=== PATIENT | male | born 1960 | race Caucasian/White ===

== ENCOUNTER 2022-01-17 19:48 | Emergency (ER) | payer OTHER, SELFPAY ==
[2022-01-17 19:54] VITALS: BP 172/93; PULSE 73; RESP 18; TEMP 36.7; O2SAT 92; BMI 36.1
--- NOTE | 2022-01-17 20:00 | W.ED.SOB ---
HPI - SOB/Dyspnea General: Chief Complaint: Shortness of Breath/Dyspnea Stated Complaint: SOB Time Seen by Provider: 01/17/22 20:00 History of Present Illness: HPI Narrative: Mr. Yoon is a 61-year-old gentleman with history of GREG and probable longstanding secondhand smoke exposure though nothing recent who presents emergency department due to shortness of breath. Reports a history of frequent respiratory infections that occur roughly yearly. Over the past few days he has felt well however today has had cough, shortness of breath, and generalized malaise. He denies associated fevers or chills. He endorses dyspnea on exertion and decreased exercise tolerance. He felt bad enough that he put on his CPAP machine earlier however still felt ill so he came to the emergency department. Overall the intensity symptoms is moderate to severe, course has persisted, denies sick contacts. He is not vaccinated is Covid. No other specific change in health, exacerbating, relieving factors identified. Pertinent past history: other (Reports lung scarring secondary to secondhand exposure) Onset (ago): hour(s) Timing: constant and progressively worsening Severity: moderate Exacerbating factors: exertion Associated symptoms: Reports cough Review of Systems General: Reports: 10 or more systems reviewed and unremarkable except in HPI and below PFSH ED PFSH: Medical History GREG (obstructive sleep apnea) Surgical History No significant past surgical history Social History Smoking and tobacco status: never smoked Second hand smoke exposure: Yes Physical Exam Const: COMMON NORMALS: alert GENERAL APPEARANCE: cooperative and well developed HENMT: COMMON NORMALS: normocephalic and atraumatic HEAD & SCALP: normocephalic and atraumatic THROAT: posterior oropharynx normal Eye: COMMON NORMALS: conjunctivae normal CONJUNCTIVA: Yes conjunctivae normal SCLERA: sclerae normal Neck/C-Spine: COMMON NORMALS: supple GENERAL: Yes trachea midline Resp: COMMON NORMALS: normal respiratory effort EFFORT & INSPECTION: Yes tachypneic AUSCULTATION: diminished lung sounds Cardio: COMMON NORMALS: regular rate and regular rhythm RATE: regular rate RHYTHM: regular rhythm GI: COMMON NORMALS: Soft to palpation PALPATION: Yes Soft to palpation and No Tenderness to palpation present (GI) PERCUSSION: normal to percussion Extremity: GENERAL: Yes normal exam except as noted and No edema Neuro: COMMON NORMALS: moves all extremities SENSORIUM/ORIENTATION: Yes alert and No Orientation impaired Psych: COMMON NORMALS: mental status grossly normal and Normal thought process present THOUGHT PROCESS: Normal thought process present Course ED course: - Patient was seen and evaluated by me at bedside - Patient placed on cardiac monitors, IV access obtained - Initial evaluation notable for exam as above -RT treatment ordered - Labs notable for no leukocytosis. No significant metabolic abnormality. Troponin and delta troponin negative. - Imaging notable for no lobar consolidation - Upon serial reexamination after treatment the patient was markedly improved with resumption of normal respiratory effort. - Based on patient history, evaluation, labs, and imaging as interpreted the most likely cause of the patient's condition is pneumonia/COPD exacerbation likely in the context of underlying lung disease secondary to longstanding secondhand tobacco smoke exposure - The results of ED evaluation were discussed with the patient including prescriptions and/or symptomatic cares (if applicable) including appropriate and responsible use, followup plan, and return precautions. The patient verbalized understanding and felt safe for discharge. - Patient discharged in satisfactory condition. Note: Click bubbles or prepopulated rebolledo in note writing are used for assistance with data collection and billing and are inherently more limited than narrative and other text portions of this note. Please use narrative for additional clinical history and defer to narrative/free test for any case of contradictory information. If information appears in only free text or click bubble it should be considered present or absent as reported. Please contact note script writer for clarifications of clinical information or contradictory information. MDM is a brief summary, contradictory or erroneous seeming information should be clarified and full note should be reviewed. Vital Signs: Vital signs: Vital Signs Temperature 98.1 F 01/17/22 19:54 Pulse Rate 81 01/17/22 22:12 Respiratory Rate 17 01/17/22 22:12 Blood Pressure 140/84 01/17/22 22:12 Pulse Oximetry 93 01/17/22 23:25 MDM - SOB/Dyspnea Medical Decision Making 61-year-old male with history of GREG and reported lung scarring from secondhand tobacco smoke exposure as a child presenting with 1 day history of cough and shortness of breath. Laboratory studies a chest x-ray unremarkable. Clinical history consistent with pneumonia, patient will be treated for pneumonia/COPD exacerbation Satisfactory for discharge with marked improvement with RT treatment. Medical Records I reviewed the patient's medical records. Lab Data I reviewed the patient's lab results. : 01/17/22 20:35 01/17/22 20:35 Labs/Radiology: Radiology Impressions Chest X-Ray 01/17/22:23 IMPRESSION: No acute findings. Laboratory Results WBC 9.4 10^3/uL (4.0-10.0) 01/17/22 20:35 RBC 4.94 10^6/uL (4.1-5.3) 01/17/22 20:35 Hgb 15.1 g/dL (11.7-16.6) 01/17/22 20: Hct 44.3 % (42.0-52.0) 01/17/22 20:35 MCV 89.7 fl (80-94) 01/17/22 20: MCH 30.6 pg (28.0-34.0) 01/17/22 20: MCHC 34.1 g/dL (30.0-36.0) 01/17/22 20:35 RDW 11.9 % (12.1-15.1) L 01/17/22:35 Plt Count 247 10^3/cmm (130-400) 01/17/22:35 MPV 9.9 fL (7.4-10.4) 01/17/22 20:35 Neut % (Auto) 55.7 % 01/17/22 20:35 Lymph % (Auto) 28.6 % 01/17/22 20:35 [place] % (Auto) 11.5 % 01/17/22 20:35 Eos % (Auto) 3.5 % 01/17/22:35 Baso % (Auto) 0.4 % 01/17/22:35 Neut # (Auto) 5.25 10^3/uL (1.8-7.7) 01/17/22 20:35 Lymph # (Auto) 2.7 10^3/uL (0.8-4.8) 01/17/22 20:35 [place] # (Auto) 1.1 10^3/uL (0.2-0.9) H 01/17/22 20:35 Eos # (Auto) 0.3 10^3/uL (0.0-0.8) 01/17/22 20:35 Baso # (Auto) 0.0 10^3/uL (0.0-0.1) 01/17/22 20:35 Nucleated RBC % (auto) 0 % 01/17/22 20:35 Nucleated RBCs # 0.0 /100WBC 01/17/22 20:35 Sodium 138 mmol/L (136-145) 01/17/22 20:35 Potassium 3.9 mmol/L (3.5-5.1) 01/17/22 20:35 Chloride 104 mmol/L (98-107) 01/17/22 20:35 Carbon Dioxide 23 mmol/L (22-29) 01/17/22 20:35 Anion Gap 14.9 (5-19) 01/17/22 20:35 BUN 9 mg/dL (8-23) 01/17/22 20:35 Creatinine 0.8 mg/dL (0.7-1.2) 01/17/22 20:35 GFR Calculation 98.0 mL/min (90-130) 01/17/22 20:35 Glucose 108 mg/dL (65-115) 01/17/22 20:35 Calculated Osmolality 285 mOsm/kg (285-295) 01/17/22 20:35 Calcium 9.6 mg/dL (8.5-10.5) 01/17/22 20:35 Total Bilirubin 0.6 mg/dL (0.15-1.2) 01/17/22 20:35 AST 33 U/L (0-40) 01/17/22 20:35 ALT 53 U/L (0-41) H 01/17/22 20:35 Alkaline Phosphatase 101 IU/L (40-130) 01/17/22 20:35 Troponin T Baseline 11 ng/L (0-15) 01/17/22 20:35 Troponin T 120 Minute 10.28 ng/L (0-15) 01/17/22 22:53 Delta Troponin T -0.72 ABS# (0-10) L 01/17/22 22:53 C-Reactive Protein 3.0 mg/L (0.0-4.9) 01/17/22 20:35 Total Protein 7.4 g/dL (6.6-8.7) 01/17/22 20:35 Albumin 4.5 g/dL (3.5-5.2) 01/17/22 20:35 Globulin 2.9 g/dL (1.3-4.6) 01/17/22 20:35 Procalcitonin 0.06 ng/mL (0-0.5) 01/17/22 20:35 SARS-CoV-2 Ag (Rapid) Negative (Negative) 01/17/22 21:10 EKG Data EKG 1: I personally reviewed and interpreted this EKG as follows: EKG Interpretation Date: 01/17/22 EKG interpretation time: 22:34 Interpretation: Twelve-lead EKG shows a regular rhythm at a rate of 73. CA interval 157, QRS duration 89, QTc 397. Normal axis. Interpretation: Sinus rhythm. Discharge Plan Discharge Patient Disposition: Home Clinical Impression: Community acquired pneumonia Condition: Stable Prescriptions: New prednisone 50 mg tablet 50 mg PO DAILY 5 Days Qty: 5 0RF Augmentin 875-125 mg tablet 1 tab PO BID Qty: 20 0RF Discharge Orders: Discharge ED (Routine); Ordered 01/17/22 Ordered By: Denzel Saenz Referrals: Micha Puente, [Primary Care Provider] - Patient Instructions: Community Acquired Pneumonia (ED) Activity Restrictions/Additional Instructions: Thank you for visiting the emergency department. You were seen and evaluated for cough and shortness of breath. The exact cause of these symptoms is unclear but likely related to pneumonia. You will treated with steroids and antibiotics given likely history of lung disease. Please followup with your PCP. Return to the ED for worsening symptoms, failure to improved, chest pain, or anything else that you are concerned about and feel needs emergency evaluation. Coding Level of Care Code ED General House Worker for Chg Fwd Exam Comprehensive
[2022-01-17 20:22] VITALS: BP 144/93; PULSE 83; RESP 20; O2SAT 94
--- NOTE | 2022-01-17 20:23 | XRR_ITS ---
PROCEDURE INFORMATION: Exam: XR Chest Exam date and time: 01/17/2022 8:23 PM Age: 61 years old Clinical indication: Cough and shortness of breath; Additional info: SOB TECHNIQUE: Imaging protocol: XR of the chest. Views: 1 view. COMPARISON: CT chest con [id number] 08/31/2015 12:39 PM FINDINGS: Lungs: Unremarkable. No consolidation. Pleural spaces: Unremarkable. No pleural effusion. No pneumothorax. Heart/Mediastinum: Unremarkable. No cardiomegaly. Bones/joints: Unremarkable. XR/XR chest 1V portable [id number] IMPRESSION: No acute findings.
[2022-01-17] MEDS: ipratropium-albuterol 3 mL Neb INHALATION (20:42)
[2022-01-17 20:43] VITALS: PULSE 79; RESP 18; O2SAT 95
[2022-01-17 20:45] LABS: Basophils % 0.4 %; Eosinophils # 0.3 10^3/uL (0.0-0.8); Eosinophils % 3.5 %; Hematocrit 44.3 % (42.0-52.0); Hemoglobin 15.1 g/dL (11.7-16.6); Lymphocytes # 2.7 10^3/uL (0.8-4.8); Lymphocytes % 28.6 %; Mean Corpuscular HGB Conc 34.1 g/dL (30.0-36.0); Mean Corpuscular Hemoglobin 30.6 pg (28.0-34.0); Mean Corpuscular Volume 89.7 fl (80-94); Mean Platelet Volume 9.9 fL (7.4-10.4); Monocytes # 1.1 10^3/uL (0.2-0.9); Monocytes % 11.5 %; Neutrophils # 5.25 10^3/uL (1.8-7.7); Neutrophils % 55.7 %; Nucleated Red Blood Cells % 0 %; Platelet Count 247 10^3/cmm (130-400); Red Blood Count 4.94 10^6/uL (4.1-5.3); Red Cell Distribution Width 11.9 % (12.1-15.1); White Blood Count 9.4 10^3/uL (4.0-10.0)
[2022-01-17 20:52] VITALS: PULSE 81
[2022-01-17] MEDS: dexamethasone 10 mg/mL INJ 6 MG IVP (21:06)
[2022-01-17 21:22] LABS: Troponin(5th) Baseline 11 ng/L (0-15)
[2022-01-17 21:26] LABS: Procalcitonin 0.06 ng/mL (0-0.5)
[2022-01-17 21:33] LABS: SARS Covid-2 Antigen Negative (Negative)
[2022-01-17 21:39] LABS: Alanine Aminotransferase 53 U/L (0-41); Albumin Level 4.5 g/dL (3.5-5.2); Alkaline Phosphatase 101 IU/L (40-130); Anion Gap 14.9 (5-19); Aspartate Amino Transferase 33 U/L (0-40); Blood Urea Nitrogen 9 mg/dL (8-23); Calcium 9.6 mg/dL (8.5-10.5); Carbon Dioxide 23 mmol/L (22-29); Chloride 104 mmol/L (98-107); Globulin 2.9 g/dL (1.3-4.6); Glucose 108 mg/dL (65-115); Osmolality Calculated 285 mOsm/kg (285-295); Potassium 3.9 mmol/L (3.5-5.1); Sodium 138 mmol/L (136-145); Total Bilirubin 0.6 mg/dL (0.15-1.2); Total Protein 7.4 g/dL (6.6-8.7)
[2022-01-17 22:12] VITALS: BP 140/84; PULSE 81; RESP 17; O2SAT 95
--- NOTE | 2022-01-17 22:23 | ECG_ITS ---
[facility] Test Date: 2022-01-17 Pat Name: Shiraz Yoon Department: Room: Gender: Male Building Attendant: : 1960 Requested By: Denzel Saenz Order Number: [id number] Beronica MD: Ramírez Downs M.D. Measurements Intervals [place] Rate: 73 P: 50 NV: 157 QRS: 44 QRSD: 89 T: 48 QT: 371 QTc: 410 Interpretive Statements SINUS RHYTHM No previous ECG available for comparison Electronically Signed On 01-18-2022 20:54:00 DANCE PROFESSOR by Ramírez Downs M.D. [id number]
[2022-01-17 23:25] VITALS: O2SAT 93
[2022-01-17] MEDS: amoxicillin-clav 875-125 mg Tablet 1 TAB PO (23:25)
[2022-01-17 23:31] LABS: Troponin 5 2HR 10.28 ng/L (0-15)
[2022-01-17 23:57] LABS: Troponin 5 2HR Delta -0.72 ABS# (0-10)
== END 2022-01-17 23:26 | disposition home or self-care (01) ==
PROVIDERS: Emergency Provider Emergency Medicine; PCP Family Medicine
DX: J18.9 Pneumonia, unspecified organism (principal); Z77.22 Contact with and (suspected) exposure to environmental tobacco smoke (acute) (chronic); Z20.822 Contact with and (suspected) exposure to COVID-19
CPT/HCPCS: 36415; 71045; 80053; 84145; 84484; 85025; 86140; 87426; 93005; 94640; 96374; 99284; J1100

== ENCOUNTER 2022-12-17 12:54 | Emergency (ER) | payer OTHER, SELFPAY ==
[2022-12-17 12:57] VITALS: BMI 36.1
[2022-12-17 13:08] VITALS: BP 135/95; PULSE 86; RESP 16; TEMP 36.6; O2SAT 94
--- NOTE | 2022-12-17 13:31 | XR_ITS ---
WS: [id number] Right hip, portable supine 2 views, AP supine portable pelvis, 12/17/2022 Clinical Data: Fall from height Comparison: None. Findings: There is a vertical fracture of the right ilium extending from the level of the inferior right SI stephen nt to the right superior pubic symphysis just along the acetabulum. The right hip is intact with no fracture. The right superior and inferior issue pubic rami are intact . The right SI joint is normal. The left hip is normal. The soft tissues are normal. XR/XR hip RT 2-3V wo/w pel* [id number] Impression: Vertical fracture of the inferior medial right ilium extending to the right obt urator foramen.
--- NOTE | 2022-12-17 13:31 | XR_ITS ---
WS: [id number] Right shoulder, 3 views, 12/17/2022 Clinical Data: Fall from height Comparison: None. Findings: There is a comminuted fracture of the proximal right humerus extending inferiorly for 12.5 cm from th e neck to the mid right humerus. The AC joints is intact. There is soft tissue swelling of the proximal right arm. XR/XR shoulder RT min 2V* [id number] Impression: Comminuted fracture of the right humerus involving the humeral head and extendi ng inferiorly to the mid right humerus.
--- NOTE | 2022-12-17 13:36 | W.ED.FALL ---
HPI - Fall General: Chief Complaint: Fall Stated Complaint: FALL FROM LADDER Time Seen by Provider: 12/17/22 13:09 Source: patient History of Present Illness: This is a 62-year-old male with a history of obstructive sleep apnea was brought to the ER for evaluation following a fall. 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 His right shoulder took the main brunt of the fall and he complains of right shoulder and right hip pain. He is unable to utilize the right upper extremity as a result of pain. He denies head injury or loss of consciousness. This is a Workmen's Comp. case. Currently, pain is tolerable because he received morphine. He denies any other injuries. Associated symptoms-after fall: Denies chest pain, headache(s), lightheadedness or neck pain Review of Systems Const: Denies: chills, body aches or change in appetite Eyes: Denies: change in vision or eye discharge ENMT: Denies: throat pain, dental pain or nasal discharge Card: Denies: chest pain or lightheadedness : Denies: dysuria Musc: Reports: extremity swelling (Right shoulder), joint pain (Right shoulder and right hip), limited range of motion (Right shoulder and to a lesser extent, right hip) and other; Denies: neck pain or back pain Neuro: Denies: headache(s) or weakness in extremities Psych: Denies: depression [place]/Lymph: Denies: easy bruising All/Imm: Denies: urticaria, tongue swelling or facial swelling PFSH ED PFSH: Medical History GREG (obstructive sleep apnea) Surgical History No significant past surgical history Social History Smoking and tobacco status: never smoked Second hand smoke exposure: Yes Physical Exam Const: COMMON NORMALS: patient oriented x3, no limitations and alert HENMT: COMMON NORMALS: normocephalic HEAD & SCALP: normocephalic Eye: COMMON NORMALS: EOMs intact bilaterally Neck/C-Spine: COMMON NORMALS: full ROM and supple Chest: COMMONS NORMALS: normal inspection of the chest Resp: COMMON NORMALS: normal respiratory effort, No retractions, No use of accessory muscles and clear to auscultation bilaterally AUSCULTATION: clear to auscultation bilaterally Cardio: COMMON NORMALS: regular rate, regular rhythm and No murmurs present (Cardio) RATE: regular rate RHYTHM: regular rhythm GI: COMMON NORMALS: Normal to inspection, nondistended, normoactive bowel sounds present and non-tender : COMMON NORMALS: Yes no CVA tenderness BLADDER/KIDNEY EXAM: Yes no CVA tenderness Back/Pelvis: COMMON NORMALS: no CVA tenderness and no thoracic nor lumbar tenderness Extremity: GENERAL: Yes other findings (Tenderness and marked limitation of movement right shoulder. ) OTHER: There is marked limitation of right shoulder movement. There is some swelling over the proximal arm. Patient is able to flex the right hip though with some discomfort. There is no distal neurovascular deficit. Neuro: COMMON NORMALS: patient oriented x3 and no focal motor deficits SENSORIUM/ORIENTATION: Yes alert Psych: COMMON NORMALS: mental status grossly normal and cooperative Course Consultations: Consultation #1: Case discussed with Dr. Garza, orthopedic surgeon on-call. He recommends that given the fracture of the ilium, patient should be transferred to a trauma center. Time: 15:57 Consultation #2: Coordinator informed me that Dr. Wren at [facility] ER accepted patient in transfer. Dr. andrew Jimenez report not needed. Vital Signs: Vital signs: Vital Signs Temperature 97.8 F 12/17/22 13:08 Pulse Rate 86 12/17/22 13:08 Respiratory Rate 18 12/17/22 14:29 Blood Pressure 135/95 12/17/22 13:08 Pulse Oximetry 94 12/17/22 13:08 Oxygen Delivery Me thod 12/17/22 13:08 MDM - Fall Medical Decision Making Medical decision making: Patient presents to the ER following a fall from a ladder. He landed mainly on the right side of the body. X-ray of the right humerus shows a comminuted fracture involving the humeral head and extending inferiorly to the mid right humerus. Pelvic x-ray shows a vertical fracture of the inferior medial right ilium extending to the right obturator foramen. Case discussed with Dr. Garza, orthopedic surgeon on-call. Recommends transfer to a trauma center. Patient and prefer to be transferred to [facility]. Patient accepted by Dr. Wren at [facility]. Lab Data Radiology Impressions Hip/Pelvis X-Ray 12/17/22 13:31 Impression: Vertical fracture of the inferior medial right ilium extending to the right obturator foramen. Shoulder X-Ray 12/17/22 13:31 Impression: Comminuted fracture of the right humerus involving the humeral head and extending inferiorly to the mid right humerus. Chest X-Ray 12/17/22 15:07 Impression: Atherosclerosis. Discharge Plan Discharge Patient Disposition: Transfer to ED Clinical Impression: Fracture of ilium, Fracture of right humerus Condition: Stable Prescriptions: No Action telmisartan 80 mg tablet 80 mg PO DAILY Fish Oil 1,200 (144-216) mg Capsule 1 cap PO DAILY [place] Raddish 1 tab PO BID Referrals: Micha Puente DO [Primary Care Provider] - Coding Level of Care Code ED Process Coach for Chg Fwd Exam Comprehensive
[2022-12-17 14:29] VITALS: RESP 18
[2022-12-17] MEDS: morphine 4 mg/mL SDV 1 mL IVP ×2 (14:29→17:01)
--- NOTE | 2022-12-17 15:07 | XR_ITS ---
WS: [id number] Portable AP supine chest, 12/17/2022 Clinical Data: fall Comparison: Portable chest, 01/17/2022 Findings: No nodules, masses or effusions are seen. The heart is normal. The pulmonary vascularity is not increased. No pneumonia or pneumothorax is seen. The aortic arch and descending thoracic aorta s how mild calcification and tortuosity. XR/XR chest 1V portable [id number] Impression: Atherosclerosis.
[2022-12-17 17:01] VITALS: RESP 18
[2022-12-17 17:23] VITALS: BP 120/78; PULSE 86; RESP 18; TEMP 36.6; O2SAT 94
[2022-12-17 17:42] VITALS: BP 120/78; PULSE 83; RESP 17; TEMP 36.6; O2SAT 96
== END 2022-12-17 17:43 ==
PROVIDERS: Emergency Provider Family Medicine; PCP Family Medicine
DX: S42.291A Other displaced fracture of upper end of right humerus, initial encounter for closed fracture (principal); S32.391A Other fracture of right ilium, initial encounter for closed fracture; W11.XXXA Fall on and from ladder, initial encounter
CPT/HCPCS: 71045; 73030; 73502; 96374; 96376; 99285; J2270

== ENCOUNTER 2023-01-23 06:00 | Outpatient (RCR) | payer OTHER, SELFPAY | END 2023-01-29 23:59 | disposition home or self-care (01) | LOC: SPT 06:00 | PROVIDERS: PCP Family Medicine; Visit Provider Orthopaedic Surgery Orthopaedic Trauma | DX: S42.301D Unspecified fracture of shaft of humerus, right arm, subsequent encounter for fracture with routine healing (principal); X58.XXXD Exposure to other specified factors, subsequent encounter | CPT/HCPCS: 97110; 97161 ==

== ENCOUNTER 2023-01-30 06:00 | Outpatient (RCR) | payer OTHER, SELFPAY | END 2023-03-01 23:59 | disposition home or self-care (01) | LOC: SPT 06:00 | PROVIDERS: PCP Family Medicine; Visit Provider Orthopaedic Surgery Orthopaedic Trauma | DX: S42.301D Unspecified fracture of shaft of humerus, right arm, subsequent encounter for fracture with routine healing (principal); X58.XXXD Exposure to other specified factors, subsequent encounter | CPT/HCPCS: 97110; 97140 ==

== ENCOUNTER 2023-02-26 06:00 | Outpatient (RCR) | payer OTHER, SELFPAY | END 2023-03-01 23:59 | disposition home or self-care (01) | LOC: SOT 06:00 | PROVIDERS: Visit Provider Orthopaedic Surgery Orthopaedic Trauma | DX: M25.641 Stiffness of right hand, not elsewhere classified (principal); S32.401D Unspecified fracture of right acetabulum, subsequent encounter for fracture with routine healing; X58.XXXD Exposure to other specified factors, subsequent encounter | CPT/HCPCS: 97110; 97140; 97166 ==

== ENCOUNTER 2023-03-02 06:00 | Outpatient (RCR) | payer OTHER, SELFPAY | END 2023-03-31 23:59 | disposition home or self-care (01) | LOC: SPT 06:00 | PROVIDERS: PCP Family Medicine; Visit Provider Orthopaedic Surgery Orthopaedic Trauma | DX: S42.301D Unspecified fracture of shaft of humerus, right arm, subsequent encounter for fracture with routine healing (principal); S32.401D Unspecified fracture of right acetabulum, subsequent encounter for fracture with routine healing; S32.301D Unspecified fracture of right ilium, subsequent encounter for fracture with routine healing; X58.XXXD Exposure to other specified factors, subsequent encounter | CPT/HCPCS: 97110 ==

== ENCOUNTER 2023-03-02 06:00 | Outpatient (RCR) | payer OTHER, SELFPAY | END 2023-03-31 23:59 | disposition home or self-care (01) | LOC: SOT 06:00 | PROVIDERS: PCP Family Medicine; Visit Provider Orthopaedic Surgery Orthopaedic Trauma | DX: M25.641 Stiffness of right hand, not elsewhere classified (principal); S32.401D Unspecified fracture of right acetabulum, subsequent encounter for fracture with routine healing; Y99.9 Unspecified external cause status | CPT/HCPCS: 97018; 97110; 97140 ==

== ENCOUNTER 2023-04-01 06:00 | Outpatient (RCR) | payer OTHER, SELFPAY | END 2023-05-01 23:59 | disposition home or self-care (01) | LOC: SOT 06:00 | PROVIDERS: PCP Family Medicine; Visit Provider Orthopaedic Surgery Orthopaedic Trauma | DX: M25.641 Stiffness of right hand, not elsewhere classified (principal); S32.401D Unspecified fracture of right acetabulum, subsequent encounter for fracture with routine healing; Y99.9 Unspecified external cause status | CPT/HCPCS: 97018; 97022; 97035; 97110; 97140 ==

== ENCOUNTER 2023-04-01 06:00 | Outpatient (RCR) | payer OTHER, SELFPAY | END 2023-05-01 23:59 | disposition home or self-care (01) | LOC: SPT 06:00 | PROVIDERS: PCP Family Medicine; Visit Provider Orthopaedic Surgery Orthopaedic Trauma | DX: S42.301D Unspecified fracture of shaft of humerus, right arm, subsequent encounter for fracture with routine healing (principal); X58.XXXD Exposure to other specified factors, subsequent encounter | CPT/HCPCS: 97110 ==

== ENCOUNTER 2023-05-02 06:00 | Outpatient (RCR) | payer OTHER, SELFPAY | END 2023-05-31 23:59 | disposition home or self-care (01) | LOC: SPT 06:00 | PROVIDERS: PCP Family Medicine; Visit Provider Orthopaedic Surgery Orthopaedic Trauma | DX: S42.331D Displaced oblique fracture of shaft of humerus, right arm, subsequent encounter for fracture with routine healing (principal); X58.XXXD Exposure to other specified factors, subsequent encounter | CPT/HCPCS: 97110 ==

== ENCOUNTER 2023-05-02 06:00 | Outpatient (RCR) | payer OTHER, SELFPAY | END 2023-05-31 23:59 | disposition home or self-care (01) | LOC: SOT 06:00 | PROVIDERS: PCP Family Medicine; Visit Provider Orthopaedic Surgery Orthopaedic Trauma | DX: M25.641 Stiffness of right hand, not elsewhere classified (principal) | CPT/HCPCS: 97022; 97035; 97110; 97140 ==

== ENCOUNTER 2023-06-01 06:00 | Outpatient (RCR) | payer OTHER, SELFPAY | END 2023-07-01 23:59 | disposition home or self-care (01) | LOC: SPT 06:00 | PROVIDERS: PCP Family Medicine; Visit Provider Orthopaedic Surgery Orthopaedic Trauma | DX: S42.301D Unspecified fracture of shaft of humerus, right arm, subsequent encounter for fracture with routine healing (principal); X58.XXXD Exposure to other specified factors, subsequent encounter | CPT/HCPCS: 97110 ==

== ENCOUNTER 2023-06-01 06:00 | Outpatient (RCR) | payer OTHER, SELFPAY | END 2023-07-01 23:59 | disposition home or self-care (01) | LOC: SOT 06:00 | PROVIDERS: PCP Family Medicine; Visit Provider Orthopaedic Surgery Orthopaedic Trauma | DX: M25.641 Stiffness of right hand, not elsewhere classified (principal) | CPT/HCPCS: 97022; 97110; 97140 ==